=== PATIENT | female | born 1955 | race Caucasian/White ===

== ENCOUNTER → 2016-10-20 | Day surgery (SDC) | payer OTHER, MEDICARE ==
[2016-10-02 15:25] VITALS: Ht 156.2 cm; Wt 87.3 kg
[~2016-10-20] VITALS: Ht 156.2 cm; Wt 87.3 kg
[~2016-10-20] MED LIST: AMLO2.5T PO; AMT50 PO; ATROPINE SULFATE 0.1 MG/ML 5ML SYR IV PRN; CALC600T9 PO; CHOL20007 PO; CITA10TA8 PO; CYAN500T13 PO; EpHEDrine SULFATE INJ 50 MG/ML AMP IV PRN; FLUT0.15 NAE; GLIM1TAB PO; HYDR-5688 PO; HYZ/10015 PO; LEVO112T4 PO; METF500T5 PO; METO25TA3 PO; NTRGSL/4 UT; PANT40TA PO; PRAV20TA PO; VITA400C28 PO; WARF1TAB6 PO; WARF2TAB8 PO
[2016-10-20 13:56] VITALS: TEMP 37.1
--- NOTE | 2016-10-20 14:17 | Endo History and Physical ---
History & Physical Date of Service: Oct 20, 2016. Chief Complaint: Anemia, Rectal bleedig Referring Physician: Joseph History of Present Illness For colonoscopy Past Surgical History Hx Cardiac Surgery: Yes (CARDIAC CATH 2 STENT-2005,CARDIAC CATH NO STENT-2007 ) Hx Internal Defibrillator: No Hx Pacemaker: No Hx Abdominal Surgery: Yes (HYSTERECTOMY BSO,TEMPORAL ARTERY BX) Hx of Implantable Prosthesis: No Hx Post-Op Nausea and Vomiting: No Hx Cancer Surgery: No Hx Thoracic Surgery: No (NEAR TOTAL THYROIDECTOMY) Hx Orthopedic: Yes (L ULNAR NERVE SURG) Family History None Social History Smoking Status: Never Smoker Hx Substance Use: Yes Hx Alcohol Use: No Allergies Coded Allergies: Doxycycline (Unverified Allergy, Unknown, DIARRHEA, 10/20/16) Lorazepam (Unverified Allergy, Unknown, SUICIDAL THOUGHTS, 10/20/16) Sulfa Antibiotics (Unverified Allergy, Unknown, HIVES, 10/20/16) Current Medications Reported Home Medications Medications Dose Route/Sig Max Daily Dose Days Date Category Dose Instructions Jantoven (Warfarin Sodium) 1 Mg Tab 1 Mg PO 4XWEEK 10/02/16 Reported Thursday-PT [facility] GET [facility]CTIONS [place] [facility] Vitamin D3 (Cholecalciferol) 2,000 Unit Tab 1 Tab PO QAM 90 10/02/16 Reported Vitamin B12 500MCG (Cyanocobalamin) 500 Mcg Tab 1,000 Mcg PO QAM 10/02/16 Reported Calcium + D (Calcium Carbonate-Vitamin D) 1 Tab Tab 1 Tab PO BID 10/02/16 Reported Nitrostat (Nitroglycerin) 0.4 Mg Tab 0.4 Mg UT PRN 10/02/16 Reported Celexa (Citalopram Hydrobromide) 10 Mg Tab 10 Mg PO NOON 10/02/16 Reported Amaryl (Glimepiride) 1 Mg Tab 2 Mg PO BID 10/02/16 Reported Alph-E (Vitamin E) 400 Unit Cap 400 Units PO QAM 10/02/16 Reported Toprol-Xl (Metoprolol Succinate) 25 Mg Tabcr 25 Mg PO QAM 10/02/16 Reported Pravachol (Pravastatin Sodium) 20 Mg Tab 80 Mg PO HS 10/02/16 Reported Jantoven (Warfarin Sodium) 2 Mg Tab 2 Mg PO 3XWEEK 10/02/16 Reported 2 MG Thursday-[facility] Protonix (Pantoprazole Sodium) 40 Mg Tab 40 Mg PO HS 10/02/16 Reported Elavil (Amitriptyline HCl) 50 Mg Tab 50 Mg PO HS 10/02/16 Reported Hyzaar 25MG/100MG (HCTZ/Losartan Potassium) Tab 1 Tab PO QAM 10/02/16 Reported Norvasc (Amlodipine Besylate) 2.5 Mg Tab 2.5 Mg PO QPM 10/02/16 Reported Flonase Allergy Relief (Fluticasone Propionate (Nasal)) 50 Mcg/Act Spr 1 [place] JALEEL BID 10/02/16 Reported [place] 5MG/325MG (Acetaminophen/Hydrocodone Bitart) Tab 1 Tablet PO PRN PRN 10/02/16 Reported PRN PAIN Glucophage Er (Metformin HCl) 500 Mg Tab 500 Mg PO BID 10/02/16 Reported Levothyroxine Sodium 112 Mcg Tab 1 Tab PO PRN 90 10/02/16 Reported Vital Signs Weight (Kilograms): 87.27 Height (Feet): 5 Height (Inches): 1.5 Date Time Temp Pulse Resp B/P (MAP) Pulse Ox O2 Delivery O2 Flow Rate FiO2 10/20/16 13:56 37.1 63 18 161/64 (96) 98 Room Air Physical Exam General Appearance: WD/WN Respiratory/Chest: Respiratory effort: no dyspnea Cardiovascular: Heart Auscultation: RRR Abdomen: Bowel Sounds: pertinent finding (S/P hysterectomy) Assessment and Plan Anemia for colonoscopy
--- NOTE | 2016-10-20 14:50 | Discharge Instructions ---
Endoscopy Patient Instructions Date / Procedure(s) Performed Oct 20, 2016. Colonoscopy Allergy Information Coded Allergies: Doxycycline (Unverified Allergy, Unknown, DIARRHEA, 10/20/16) Lorazepam (Unverified Allergy, Unknown, SUICIDAL THOUGHTS, 10/20/16) Sulfa Antibiotics (Unverified Allergy, Unknown, HIVES, 10/20/16) Discharge Date / Findings Oct 20, 2016. Cecal friability Medication Instructions Stopped Medication(s): coumadin taken 10/19/16 Restart Stopped Medication(s): resume meds Reported Home Medications Medications Dose Route/Sig Max Daily Dose Days Date Category Dose Instructions Jantoven (Warfarin Sodium) 1 Mg Tab 1 Mg PO 4XWEEK 10/02/16 Reported Thursday-PT WILL GET INSTRUCTIONS FROM [facility] Vitamin D3 (Cholecalciferol) 2,000 Unit Tab 1 Tab PO QAM 90 10/02/16 Reported Vitamin B12 500MCG (Cyanocobalamin) 500 Mcg Tab 1,000 Mcg PO QAM 10/02/16 Reported Calcium + D (Calcium Carbonate-Vitamin D) 1 Tab Tab 1 Tab PO BID 10/02/16 Reported Nitrostat (Nitroglycerin) 0.4 Mg Tab 0.4 Mg UT PRN 10/02/16 Reported Celexa (Citalopram Hydrobromide) 10 Mg Tab 10 Mg PO NOON 10/02/16 Reported Amaryl (Glimepiride) 1 Mg Tab 2 Mg PO BID 10/02/16 Reported Alph-E (Vitamin E) 400 Unit Cap 400 Units PO QAM 10/02/16 Reported Toprol-Xl (Metoprolol Succinate) 25 Mg Tabcr 25 Mg PO QAM 10/02/16 Reported Pravachol (Pravastatin Sodium) 20 Mg Tab 80 Mg PO HS 10/02/16 Reported Jantoven (Warfarin Sodium) 2 Mg Tab 2 Mg PO 3XWEEK 10/02/16 Reported 2 MG Thursday-PT WILL GET INSTRUCTIONS FROM [facility] Protonix (Pantoprazole Sodium) 40 Mg Tab 40 Mg PO HS 10/02/16 Reported Elavil (Amitriptyline HCl) 50 Mg Tab 50 Mg PO HS 10/02/16 Reported Hyzaar 25MG/100MG (HCTZ/Losartan Potassium) Tab 1 Tab PO QAM 10/02/16 Reported Norvasc (Amlodipine Besylate) 2.5 Mg Tab 2.5 Mg PO QPM 10/02/16 Reported Flonase Allergy Relief (Fluticasone Propionate (Nasal)) 50 Mcg/Act Spr 1 [place] JALEEL BID 10/02/16 Reported [place] 5MG/325MG (Acetaminophen/Hydrocodone Bitart) Tab 1 Tablet PO PRN PRN 10/02/16 Reported PRN PAIN Glucophage Er (Metformin HCl) 500 Mg Tab 500 Mg PO BID 10/02/16 Reported Levothyroxine Sodium 112 Mcg Tab 1 Tab PO PRN 90 10/02/16 Reported Provider Instructions Activity Restrictions - No exercising or heavy lifting for 24 hours. - Do not drink alcohol the day of the procedure. - Do not drive a car or operate machinery until the day after the procedure. - Do not make any important decisions or sign important papers in 24 hours after the procedure. Following Day: - Return to full activity which may include returning to work/school. Diet Start your diet with liquids and light foods (jello, soup, juice, toast). Then eat your usual diet if not nauseated. Treatment For Common After Affects For mild abdominal pain, bloating, or excessive gas: - Rest - Eat lightly - Lie on right side Follow-Up Information Follow-up with Joseph as scheduled Anesthesia Information What You Should Know You have had a procedure that required some medicine to reduce anxiety and discomfort. This treatment is called moderate sedation. After receiving the treatment, you may be sleepy, but you will be able to breathe on your own. The effects of the treatment may last for several hours. Follow these instructions along with Activity/Diet recommendations noted above: * Do NOT do anything where dizziness or clumsiness would be dangerous. * Rest quietly at home today, then you can be up and about tomorrow. * Have a responsible person stay with you the rest of today. * You may have had an I.V. today. If so, you may take the dressing off later today. Recommendations Call your doctor if: * Trouble breathing * Continuous vomiting for more than 24 hours * Temperature above 101 degrees * Severe abdominal pain or bloating * Pain not relieved by pain medicine ordered * There is increased drainage or redness from any incision * A large amount of rectal bleeding greater than 2-3 tablespoons. (If you had a polyp/s removed or have hemorrhoids, a small amount of blood - from the rectum is to be expected.) * You have any unanswered questions or concerns. IN THE EVENT OF A SERIOUS EMERGENCY, GO TO THE NEAREST EMERGENCY ROOM Your discharge instructions were prepared by provider Yeison Mata. Patient Instructions Signature Page Veena Moreno Patient (or Guardian) Signature/Date: I have read and understand the instructions given to me by my caregivers. Caregiver/RN/Doctor Signature/Date: The above-named patient and/or guardian has received patient instructions on this date. + Original Patient Signature Page (only) stays with chart. Please make copy for patient.
--- NOTE | 2016-10-20 14:54 | GI REPORT ---
Procedure Date: 10/20/2016 2:19 PM Procedure: Colonoscopy Indications: Rectal bleeding, Iron deficiency anemia Medicines: Propofol total dose 260 mg IV, Lidocaine 40 mg IV Complications: No immediate complications. Estimated Blood Loss: Estimated blood loss was minimal. Procedure: Pre-Anesthesia Assessment: - Prior to the procedure, a History and Physical was performed, and patient medications, allergies and sensitivities were reviewed. The patient's tolerance of previous anesthesia was reviewed. - The risks and benefits of the procedure and the sedation options and risks were discussed with the patient. All questions were answered and informed consent was obtained. After I obtained informed consent, the scope was passed under direct vision. Throughout the procedure, the patient's blood pressure, pulse, and oxygen saturations were monitored continuously. The scope was introduced through the anus and advanced to the cecum, identified by appendiceal orifice and ileocecal valve. The colonoscopy was somewhat difficult due to poor endoscopic visualization and significant looping. Successful completion of the procedure was aided by applying abdominal pressure. The patient tolerated the procedure. The quality of the bowel preparation was poor. Findings: A scattered area of mildly friable mucosa with contact bleeding was found in the cecum. Impression: - Preparation of the colon was poor. - Friability with contact bleeding in the cecum. - No specimens collected. Recommendation: - Discharge patient to home (ambulatory). - Continue present medications. - Return to primary care physician PRN. Yeison Mata M.D. Yeison Mata MD 10/20/2016 2:53:36 PM This report has been signed electronically. Note Initiated On: 10/20/2016 2:19 PM I attest to the content of the Intraoperative Record and orders documented therein, exceptions below
--- NOTE | 2016-10-20 15:05 | Anesthesiology Progress Note ---
Anesthesia Post Op Note Date & Time Oct 20, 2016 at 15:05 Vital Signs Pain Intensity: 0 Vital Signs Past 12 Hours Date Time Temp Pulse Resp B/P (MAP) Pulse Ox O2 Delivery O2 Flow Rate FiO2 10/20/16 14:57 74 20 161/70 (100) 97 Mask 10 10/20/16 13:56 37.1 63 18 161/64 (96) 98 Room Air Notes Mental Status: alert / awake / arousable, participated in evaluation Pt Amnestic to Procedure: Yes Nausea / Vomiting: adequately controlled Pain: adequately controlled Airway Patency, RR, SpO2: stable & adequate BP & HR: stable & adequate Hydration State: stable & adequate Anesthetic Complications: no major complications apparent
[2016-10-20 15:27] VITALS: BP 150/70; PULSE 69; O2SAT 96
== END | disposition home or self-care (01) ==
LOC: C.GI 13:05
PROVIDERS: ATTEND Internal Medicine Gastroenterology
DX: K63.89 Other specified diseases of intestine (principal); D50.9 Iron deficiency anemia, unspecified; Z79.01 Long term (current) use of anticoagulants